=== PATIENT | female | born 1985 | race Hispanic/Latino ===

== ENCOUNTER 2019-12-06 20:24 | Emergency (ER) | payer SELFPAY ==
[~2019-12-06] VITALS: Ht 162.6 cm; Wt 70.0 kg
[~2019-12-06 20:24] MED LIST: CEPHALEXIN500 MG PO; FERR SULFATE325 MG PO; IBUPROFEN600 MG PO; LORTAB 5/3255 MG PO; NO; TYLENOL500 MG OR; VENTOLIN HFA IN; VISTARIL25 MG PO
[2019-12-06 21:16] LABS: IMMATURE GRANULOCYTES 0.2 % (0.0-5.0); MEAN CORPUSCULAR HGB 30.6 pG CALC (26.0-32.0); MEAN CORPUSCULAR HGB CONC 32.9 g/dL CAL (32.0-36.0); NEUT# 3.37 thou/uL (2.00-7.15); RED BLOOD COUNT 4.67 mill/uL (4.20-5.60); RED CELL DISTRI WIDTH 11.8 % (11.5-15.5)
[2019-12-06 21:18] LABS: HEMATOCRIT 43.5 % (37.0-47.0); HEMOGLOBIN 14.3 g/dl (12.0-16.0); MEAN CELL VOLUME 93.1 fL CALC (80.0-100.0)
[2019-12-06 21:33] LABS: BILIRUBIN, TOTAL 0.4 mg/dL (0.0-1.4); BUN 8 mg/dL (7-17); BUN/CREATININE RATIO 10 (12-20 (CALC)); C-REACTIVE PROTEIN 1.5 mg/dL (0-0.9); CHLORIDE 100 mmol/l (95-108); CREATININE 0.8 mg/dL (0.5-1.0); GFR > 60 ML/MIN (>=60 (CALC)); GFR FOR AFR.AMER. > 60 ML/MIN (>=60 (CALC)); SODIUM 135 mmol/l (137-146); TOTAL PROTEIN 8.3 g/dL (6.3-8.2)
[2019-12-06 21:34] LABS: ALBUMIN 4.5 g/dL (3.2-5.0); ALKALINE PHOSPHATASE 103 u/l (38-126); ANION GAP 13 (6-22 (CALC)); CARBON DIOXIDE 25 mmol/l (22-30); POTASSIUM 3.4 mmol/l (3.5-5.1); SGOT/AST 76 u/l (14-36)
[2019-12-06 22:08] VITALS: BP 109/49
== END 2019-12-06 22:08 | disposition home or self-care (01) | DRG 179 ==
LOC: ED 20:24
PROVIDERS: Family Medicine
DX: U07.1 COVID-19 (principal)